=== PATIENT | male | born 1985 | race American Indian/Alaskan Native ===

== ENCOUNTER 2020-06-22 16:19 | Emergency (ER) | payer OTHER ==
[2020-06-22 16:39] VITALS: BP 156/96
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
--- NOTE | 2020-06-22 17:51 | XRay Report ---
Left wrist 3 views INDICATION: Left wrist pain and swelling following injury IMPRESSION: No acute fracture or subluxation of the left wrist is identified. Signer Name: Morris Capps MD Signed: 06/22/2020 5:46 PM Workstation Name: [id number]
--- NOTE | 2020-06-22 17:52 | XRay Report ---
Lumbar spine 3 views INDICATION: Low back pain. IMPRESSION: No acute fracture or subluxation is identified. Signer Name: Morris Capps MD Signed: 06/22/2020 5:48 PM Workstation Name: [id number]
--- NOTE | 2020-06-22 17:52 | XRay Report ---
Cervical spine 3 views INDICATION: Neck pain IMPRESSION: No acute fracture or subluxation of the cervical spine. Mild prevertebral edema is seen w ithin the upper pharynx region. Multilevel early degenerative changes of the disc spaces of the mid a nd lower cervical spine. Signer Name: Morris Capps MD Signed: 06/22/2020 5:47 PM Workstation Name: [id number]
== END 2020-06-22 18:21 | disposition home or self-care (01) ==
LOC: ED 16:19
DX: S13.4XXA Sprain of ligaments of cervical spine, initial encounter (principal); S39.012A Strain of muscle, fascia and tendon of lower back, initial encounter; S66.912A Strain of unspecified muscle, fascia and tendon at wrist and hand level, left hand, initial encounter; I10 Essential (primary) hypertension; Z79.899 Other long term (current) drug therapy; Z91.013 Allergy to seafood; Z88.8 Allergy status to other drugs, medicaments and biological substances; V49.49XA Driver injured in collision with other motor vehicles in traffic accident, initial encounter; Y93.89 Activity, other specified; Y92.410 Unspecified street and highway as the place of occurrence of the external cause; Y99.8 Other external cause status
CPT/HCPCS: 72040; 72100

== ENCOUNTER 2020-08-17 11:12 | Emergency (ER) | payer OTHER ==
[2020-08-17 11:23] VITALS: BP 166/103
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
== END 2020-08-17 13:41 | disposition home or self-care (01) ==
LOC: ED 11:12
DX: S16.1XXA Strain of muscle, fascia and tendon at neck level, initial encounter (principal); S39.012A Strain of muscle, fascia and tendon of lower back, initial encounter; I10 Essential (primary) hypertension; F17.200 Nicotine dependence, unspecified, uncomplicated; F12.10 Cannabis abuse, uncomplicated; Z79.899 Other long term (current) drug therapy; Z91.013 Allergy to seafood; Z88.8 Allergy status to other drugs, medicaments and biological substances; V49.59XA Passenger injured in collision with other motor vehicles in traffic accident, initial encounter; Y93.89 Activity, other specified; Y92.410 Unspecified street and highway as the place of occurrence of the external cause; Y99.8 Other external cause status
CPT/HCPCS: 99282

== ENCOUNTER 2021-10-06 18:59 | Emergency (ER) | payer OTHER ==
[2021-10-07 00:19] VITALS: BP 146/97
--- NOTE | 2021-10-07 01:03 | XRay Report ---
(2 views INDICATION: Injury FINDINGS: MCP joints and IP joints appear normal. No definite foreign body is seen. No displaced frac ture. Signer Name: Shiv Greene MD Signed: 10/07/2021 12:58 AM Workstation Name: [id number]
[2021-10-07] MEDS ORDERED: TETANUS,DIPH,PERTUSS(ACELL) VACCINE 0.5 ML SYRINGE IM ONE (05:19)
[2021-10-07] MEDS ORDERED: traMADol 50 MG TAB PO ONE (05:19)
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
== END 2021-10-07 06:13 | disposition home or self-care (01) ==
LOC: ED 18:59
DX: S63.617A Unspecified sprain of left little finger, initial encounter (principal); F17.200 Nicotine dependence, unspecified, uncomplicated; F10.20 Alcohol dependence, uncomplicated; F12.90 Cannabis use, unspecified, uncomplicated; X58.XXXA Exposure to other specified factors, initial encounter; Y93.89 Activity, other specified; Y92.89 Other specified places as the place of occurrence of the external cause; Y99.8 Other external cause status
CPT/HCPCS: 90471; 90715; 99283